=== PATIENT | male | born 1980 | race African-American/Black ===

== ENCOUNTER 2018-01-30 16:08 | Inpatient (IN) ==
[2018-01-30 17:13] LABS: Basophils % 0.3 % (0.0-0.8); Eosinophils # 0.3 10*3/uL (0.0-0.87); Eosinophils % 3.3 % (0.00-10.9); Hematocrit 21.7 VOL% (42.0-52.0); Immature Granulocytes % 0.4 %; Immature Granulocytes Absolute 0.04 #; Lymphocytes # 1.1 10*3/uL (1.4-4.0); Lymphocytes % 11.9 % (21.2-54.2); Mean Corpuscular HGB Conc 36.9 GM/DL (32-36); Mean Corpuscular Hemoglobin 29 PG (27-34); Mean Corpuscular Volume 78.6 FL (87-102); Mean Platelet Volume 11.4 FL (9.6-12.0); Monocytes # 0.4 10*3/uL (0.11-0.8); Monocytes % 3.8 % (1.7-12.7); Neutrophils # 7.4 10*3/uL (1.4-7.4); Neutrophils % 80.3 % (38.7-73.9); Platelet Count 316 T/CUMM (130-400); Red Blood Count 2.76 MC/CUMM (3.8-5.5); Red Cell Distribution Width 15.2 % (9.3-17.3); White Blood Count 9.3 T/CUMM (4-12)
[2018-01-30 17:48] LABS: Alanine Aminotransferase 29 U/L (16-61); Albumin 2.2 G/DL (3.4-5.0); Alkaline Phosphatase 73 U/L (45-117); Aspartate Amino Transferase 45 U/L (0-37); Bilirubin,Total < 0.39 MG/DL (0.2-1.0); Blood Urea Nitrogen 46 MG/DL (7-18); Calcium 7.8 MG/DL (8.5-10.1); Glucose 58 MG/DL (74-106); Osmolality,Calculated 292.1 MOS/KG (273-304); Potassium 3.5 MMOL/L (3.5-5.1); Sodium 142 MMOL/L (136-145); Total Protein 5.6 G/DL (6.4-8.3)
[2018-01-30] MEDS ORDERED: DOCUSATE SODIUM 100 MG CAPSULE PO PRN (17:59)
[2018-01-30] MEDS ORDERED: ONDANSETRON 4 MG/2 ML VIAL IV PRN (17:59)
[2018-01-30] MEDS ORDERED: GLUCAGON 1 MG VIAL IM PRN (17:59)
[2018-01-30] MEDS ORDERED: ACETAMINOPHEN 325 MG TABLET PO PRN (17:59)
[2018-01-30] MEDS ORDERED: ZALEPLON 5 MG CAPSULE PO PRN (17:59)
[2018-01-30] MEDS ORDERED: DEXTROSE 50% 25 GM/50 ML VIAL IV PRN (17:59)
[2018-01-30] MEDS ORDERED: hydrALAZINE 20 MG/1 ML VIAL IV STA ×2 (18:04→19:29)
[2018-01-30] MEDS ORDERED: FUROSEMIDE 40 MG/4 ML VIAL IV STA (18:05)
[2018-01-30] MEDS ORDERED: hydrALAZINE 20 MG/1 ML VIAL IV PRN (18:07)
[2018-01-30] MEDS ORDERED: DEXTROSE 50% 25 GM/50 ML SYRINGE IV ONE (18:23)
[2018-01-30 18:29] LABS: Thyroid Stimulating Hormone 3.35 uIU/ml (0.358-3.74)
[2018-01-30] MEDS ORDERED: cloNIDine 0.1 MG TABLET PO STA (18:41)
[2018-01-30] MEDS ORDERED: LABETALOL 20 MG/4 ML SYRINGE IV STA (18:42)
[2018-01-30] MEDS ORDERED: LABETALOL 100 MG/20 ML VIAL IV STA (18:49)
[2018-01-30 18:53] LABS: Amorphous Crystals,Urine Few /HPF (Few); Apearance,Urine CLOUDY (Clear); Bacteria,Urine Occasional /HPF (Few); Bilirubin,Urine Negative (Negative); Blood, Urine Moderate mg/dL (Negative); Glucose,Urine (UA) 50 mg/dL (Negative); Ketones,Urine Negative (Negative); Nitrite,Urine Negative (Negative); Protein,Urine >=500 MG/DL; RBC,Urine 2 /HPF (0-4); Squamous Epithelial Cell,Urine Occasional /HPF (0-10); Urine Color Yellow (Yellow); Urine Specific Gravity 1.016 (1.001-1.035); Urine Urobilinogen < 2.0 EU/DL (0.2-1.0); WBC,Urine 25 /HPF (0-6)
[2018-01-30 18:57] LABS: Ferritin 1143.1 ng/ml (26-388)
[2018-01-30] MEDS: PRAVASTATIN 40 MG TABLET PO SCH (20:29)
[2018-01-30] MEDS: CARVEDILOL 25 MG TABLET PO SCH (20:29)
[2018-01-30] MEDS ORDERED: CARVEDILOL 25 MG TABLET PO SCH (21:00)
[2018-01-30] MEDS: INSULIN LISPRO 100 UNIT/ML SUBCUT SCH ×2 (21:23→22:19)
[2018-01-30] MEDS: FUROSEMIDE 40 MG/4 ML VIAL IV SCH (22:11)
[2018-01-31] MEDS: INSULIN LISPRO 100 UNIT/ML SUBCUT SCH ×6 (01:55→20:51)
[2018-01-31 06:42] LABS: Albumin 1.8 G/DL (3.4-5.0); Bilirubin,Total 0.6 MG/DL (0.2-1.0); Calcium 7.6 MG/DL (8.5-10.1); Potassium 3.4 MMOL/L (3.5-5.1); Total Protein 5.2 G/DL (6.4-8.3)
[2018-01-31 07:13] LABS: Basophils % 0.4 % (0.0-0.8); Eosinophils # 0.4 10*3/uL (0.0-0.87); Eosinophils % 4.7 % (0.00-10.9); Hematocrit 18.3 VOL% (42.0-52.0); Hemoglobin 6.7 GM/DL (14.0-18.0); Immature Granulocytes % 0.4 %; Immature Granulocytes Absolute 0.03 #; Lymphocytes # 1.2 10*3/uL (1.4-4.0); Lymphocytes % 14.8 % (21.2-54.2); Mean Corpuscular HGB Conc 36.6 GM/DL (32-36); Mean Corpuscular Hemoglobin 29 PG (27-34); Mean Corpuscular Volume 79.6 FL (87-102); Mean Platelet Volume 10.9 FL (9.6-12.0); Monocytes # 0.3 10*3/uL (0.11-0.8); Monocytes % 4.2 % (1.7-12.7); Neutrophils # 6.1 10*3/uL (1.4-7.4); Neutrophils % 75.5 % (38.7-73.9); Platelet Count 274 T/CUMM (130-400); Red Cell Distribution Width 15.7 % (9.3-17.3); White Blood Count 8.1 T/CUMM (4-12)
[2018-01-31] MEDS ORDERED: POTASSIUM CHLORIDE 20 MEQ TABLET PO PRN (08:19)
[2018-01-31] MEDS: MULTIVITAMIN (CENTRUM) TABLET PO SCH (09:32)
[2018-01-31] MEDS: CYANOCOBALAMIN 500 MCG TABLET PO SCH (09:32)
[2018-01-31] MEDS: PANTOPRAZOLE 40 MG TABLET PO SCH (09:32)
[2018-01-31] MEDS: MINOXIDIL 2.5 MG TABLET PO SCH (09:33)
[2018-01-31] MEDS: FUROSEMIDE 40 MG/4 ML VIAL IV SCH ×2 (09:36→20:48)
[2018-01-31] MEDS: CARVEDILOL 25 MG TABLET PO SCH ×2 (09:37→18:06)
[2018-01-31 10:06] LABS: Basophils % 0.4 % (0.0-0.8); Eosinophils # 0.4 10*3/uL (0.0-0.87); Eosinophils % 4.2 % (0.00-10.9); Hematocrit 19.7 VOL% (42.0-52.0); Hemoglobin 7.2 GM/DL (14.0-18.0); Immature Granulocytes % 0.4 %; Immature Granulocytes Absolute 0.04 #; Lymphocytes # 1.4 10*3/uL (1.4-4.0); Lymphocytes % 15.7 % (21.2-54.2); Mean Corpuscular HGB Conc 36.5 GM/DL (32-36); Mean Corpuscular Hemoglobin 29 PG (27-34); Mean Corpuscular Volume 80.1 FL (87-102); Mean Platelet Volume 11.3 FL (9.6-12.0); Monocytes # 0.5 10*3/uL (0.11-0.8); Monocytes % 5.4 % (1.7-12.7); Neutrophils # 6.7 10*3/uL (1.4-7.4); Neutrophils % 73.9 % (38.7-73.9); Platelet Count 301 T/CUMM (130-400); Red Blood Count 2.46 MC/CUMM (3.8-5.5); Red Cell Distribution Width 15.3 % (9.3-17.3); White Blood Count 9.1 T/CUMM (4-12)
[2018-01-31] MEDS: cefTRIAXone 1,000 MG in SYRINGE 1 EACH IV SCH (12:49)
[2018-01-31] MEDS ORDERED: SODIUM CHLORIDE 0.9% 1,000 ML IV PRN (13:26)
[2018-01-31] MEDS: PRAVASTATIN 40 MG TABLET PO SCH (18:06)
[2018-01-31 18:49] LABS: % Iron Saturation 31.4 % (18-50); Ferritin 990.8 ng/ml (26-388)
[2018-02-01] MEDS: INSULIN LISPRO 100 UNIT/ML SUBCUT SCH ×6 (00:01→21:50)
[2018-02-01 01:05] LABS: Hemoglobin 8.5 GM/DL (14.0-18.0)
[2018-02-01 06:34] LABS: Basophils # 0.1 10*3/uL (0.0-0.2); Basophils % 0.5 % (0.0-0.8); Eosinophils # 0.5 10*3/uL (0.0-0.87); Eosinophils % 4.9 % (0.00-10.9); Hematocrit 25.6 VOL% (42.0-52.0); Hemoglobin 8.9 GM/DL (14.0-18.0); Immature Granulocytes % 0.4 %; Immature Granulocytes Absolute 0.04 #; Lymphocytes # 1.6 10*3/uL (1.4-4.0); Mean Corpuscular HGB Conc 34.8 GM/DL (32-36); Mean Corpuscular Hemoglobin 29 PG (27-34); Mean Corpuscular Volume 82.3 FL (87-102); Mean Platelet Volume 10.9 FL (9.6-12.0); Monocytes # 0.5 10*3/uL (0.11-0.8); Monocytes % 5.7 % (1.7-12.7); Neutrophils # 6.6 10*3/uL (1.4-7.4); Neutrophils % 71.5 % (38.7-73.9); Platelet Count 284 T/CUMM (130-400); Red Blood Count 3.11 MC/CUMM (3.8-5.5); Red Cell Distribution Width 14.9 % (9.3-17.3); White Blood Count 9.2 T/CUMM (4-12)
[2018-02-01 06:53] LABS: Calcium 7.5 MG/DL (8.5-10.1); Osmolality,Calculated 299.4 MOS/KG (273-304); Potassium 3.8 MMOL/L (3.5-5.1)
[2018-02-01] MEDS: PANTOPRAZOLE 40 MG TABLET PO SCH (10:58)
[2018-02-01] MEDS: CYANOCOBALAMIN 500 MCG TABLET PO SCH (10:58)
[2018-02-01] MEDS: CARVEDILOL 25 MG TABLET PO SCH ×2 (11:00→19:31)
[2018-02-01] MEDS: MULTIVITAMIN (CENTRUM) TABLET PO SCH (11:00)
[2018-02-01] MEDS: FUROSEMIDE 40 MG/4 ML VIAL IV SCH (11:03)
[2018-02-01] MEDS: cefTRIAXone 1,000 MG in SYRINGE 1 EACH IV SCH (15:35)
[2018-02-01] MEDS: PRAVASTATIN 40 MG TABLET PO SCH (19:31)
[2018-02-01] MEDS: MINOXIDIL 2.5 MG TABLET PO SCH (21:49)
[2018-02-02] MEDS: INSULIN LISPRO 100 UNIT/ML SUBCUT SCH ×4 (05:24→12:45)
[2018-02-02 07:10] LABS: Basophils % 0.4 % (0.0-0.8); Eosinophils # 0.4 10*3/uL (0.0-0.87); Eosinophils % 5.4 % (0.00-10.9); Hematocrit 24.9 VOL% (42.0-52.0); Hemoglobin 8.7 GM/DL (14.0-18.0); Immature Granulocytes % 0.2 %; Immature Granulocytes Absolute 0.02 #; Lymphocytes # 1.3 10*3/uL (1.4-4.0); Lymphocytes % 16.7 % (21.2-54.2); Mean Corpuscular HGB Conc 34.9 GM/DL (32-36); Mean Corpuscular Hemoglobin 29 PG (27-34); Mean Corpuscular Volume 81.9 FL (87-102); Mean Platelet Volume 10.5 FL (9.6-12.0); Monocytes # 0.4 10*3/uL (0.11-0.8); Neutrophils # 5.8 10*3/uL (1.4-7.4); Neutrophils % 72.3 % (38.7-73.9); Platelet Count 271 T/CUMM (130-400); Red Blood Count 3.04 MC/CUMM (3.8-5.5); Red Cell Distribution Width 14.7 % (9.3-17.3)
[2018-02-02 07:40] LABS: Calcium 7.8 MG/DL (8.5-10.1); Osmolality,Calculated 292.3 MOS/KG (273-304); Potassium 3.6 MMOL/L (3.5-5.1)
[2018-02-02] MEDS ORDERED: LEVOFLOXACIN 500 MG TABLET PO SCH (09:00)
[2018-02-02] MEDS: MINOXIDIL 2.5 MG TABLET PO SCH ×2 (09:10→09:33)
[2018-02-02] MEDS: MULTIVITAMIN (CENTRUM) TABLET PO SCH (09:10)
[2018-02-02] MEDS: CYANOCOBALAMIN 500 MCG TABLET PO SCH (09:10)
[2018-02-02] MEDS: CARVEDILOL 25 MG TABLET PO SCH (09:11)
[2018-02-02] MEDS: PANTOPRAZOLE 40 MG TABLET PO SCH (09:11)
[2018-02-02] MEDS ORDERED: DARBEPOETIN ALFA 100 MCG/ML VIAL SUBCUT ONE (11:13)
[2018-02-02 12:36] VITALS: BP 140/82
[2018-02-03] MEDS ORDERED: LEVOFLOXACIN 250 MG TABLET PO SCH (09:00)
== END 2018-02-02 13:42 | disposition home health service (06) | DRG 699 ==
LOC: N.ED 16:08 → N.EDINP 17:59 → N.5E 20:05
PROVIDERS: ADMIT Internal Medicine; ATTEND Internal Medicine

== ENCOUNTER 2018-05-08 12:12 | Inpatient (IN) ==
[2018-05-08] MEDS ORDERED: ONDANSETRON 4 MG/2 ML VIAL IV STA (13:39)
[2018-05-08] MEDS ORDERED: ASPIRIN 325 MG TABLET PO STA (13:39)
[2018-05-08] MEDS ORDERED: MORPHINE 4 MG/1 ML VIAL IV STA (13:39)
[2018-05-08] MEDS ORDERED: NITROGLYCERIN 2% OINT 1 INCH/GM PACK TOP STA (13:39)
[2018-05-08 13:53] LABS: Basophils % 0.4 % (0.0-0.8); Eosinophils # 0.9 10*3/uL (0.0-0.87); Eosinophils % 10.1 % (0.00-10.9); Hemoglobin 9.7 GM/DL (14.0-18.0); Immature Granulocytes % 0.3 %; Immature Granulocytes Absolute 0.03 #; Lymphocytes # 1.3 10*3/uL (1.4-4.0); Lymphocytes % 14.6 % (21.2-54.2); Mean Corpuscular HGB Conc 34.6 GM/DL (32-36); Mean Corpuscular Hemoglobin 28 PG (27-34); Mean Platelet Volume 10.9 FL (9.6-12.0); Monocytes # 0.5 10*3/uL (0.11-0.8); Monocytes % 4.9 % (1.7-12.7); Neutrophils # 6.4 10*3/uL (1.4-7.4); Neutrophils % 69.7 % (38.7-73.9); Platelet Count 323 T/CUMM (130-400); Red Cell Distribution Width 13.9 % (9.3-17.3); White Blood Count 9.2 T/CUMM (4-12)
[2018-05-08 13:56] LABS: INR 0.9; PT Patient Result 9.7 SECS
[2018-05-08 14:17] LABS: Alanine Aminotransferase 37 U/L (16-61); Albumin 2.1 G/DL (3.4-5.0); Alkaline Phosphatase 85 U/L (45-117); Aspartate Amino Transferase 72 U/L (0-37); Bilirubin,Total < 0.39 MG/DL (0.2-1.0); Blood Urea Nitrogen 56 MG/DL (7-18); Calcium 7.9 MG/DL (8.5-10.1); Glucose 102 MG/DL (74-106); Osmolality,Calculated 292.5 MOS/KG (273-304); Potassium 3.6 MMOL/L (3.5-5.1); Sodium 139 MMOL/L (136-145); Total Protein 6.9 G/DL (6.4-8.3)
[2018-05-08] MEDS ORDERED: DEXTROSE 50% 25 GM/50 ML VIAL IV PRN (15:42)
[2018-05-08] MEDS ORDERED: GLUCAGON 1 MG VIAL IM PRN (15:42)
[2018-05-08] MEDS ORDERED: LACTULOSE 20 GM/30 ML UDCUP PO PRN (15:42)
[2018-05-08] MEDS ORDERED: ACETAMINOPHEN 325 MG TABLET PO PRN (15:42)
[2018-05-08] MEDS ORDERED: ONDANSETRON 4 MG/2 ML VIAL IV PRN (15:42)
[2018-05-08] MEDS: INSULIN REGULAR 100 UNIT/ML SUBCUT SCH ×2 (18:16→21:09)
[2018-05-08] MEDS: ENOXAPARIN 30 MG/0.3 ML SYRINGE SUBCUT SCH (18:16)
[2018-05-08] MEDS: CARVEDILOL 25 MG TABLET PO SCH (21:11)
[2018-05-08] MEDS: BUMETANIDE 1 MG/4 ML VIAL IV SCH (21:14)
[2018-05-09 06:00] LABS: Basophils # 0.1 10*3/uL (0.0-0.2); Basophils % 0.8 % (0.0-0.8); Eosinophils # 0.9 10*3/uL (0.0-0.87); Eosinophils % 12.5 % (0.00-10.9); Hematocrit 25.7 VOL% (42.0-52.0); Hemoglobin 9.1 GM/DL (14.0-18.0); Immature Granulocytes % 0.3 %; Immature Granulocytes Absolute 0.02 #; Lymphocytes # 1.7 10*3/uL (1.4-4.0); Lymphocytes % 22.2 % (21.2-54.2); Mean Corpuscular HGB Conc 35.4 GM/DL (32-36); Mean Corpuscular Hemoglobin 28 PG (27-34); Mean Corpuscular Volume 79.6 FL (87-102); Mean Platelet Volume 11.3 FL (9.6-12.0); Monocytes # 0.4 10*3/uL (0.11-0.8); Monocytes % 5.3 % (1.7-12.7); Neutrophils # 4.4 10*3/uL (1.4-7.4); Neutrophils % 58.9 % (38.7-73.9); Platelet Count 287 T/CUMM (130-400); Red Blood Count 3.23 MC/CUMM (3.8-5.5); Red Cell Distribution Width 13.9 % (9.3-17.3); White Blood Count 7.5 T/CUMM (4-12)
[2018-05-09 06:28] LABS: Calcium 7.7 MG/DL (8.5-10.1); Osmolality,Calculated 296.3 MOS/KG (273-304)
[2018-05-09 06:36] LABS: Eosinophils 15 % (0-10); Hypochromasia 1+; Lymphocytes 26 % (20-55); Microcytosis Slight; Platelet Estimate Adequate; Segmented Neutrophils 57 % (50-85); Total Cells Counted 100
[2018-05-09] MEDS: INSULIN REGULAR 100 UNIT/ML SUBCUT SCH ×4 (07:27→21:59)
[2018-05-09] MEDS ORDERED: NON-FORMULARY MEDICATION (Cyanocobalamin (Vitamin B-12) [Vitamin B-12] 5,000 MCG) SL SCH (09:00)
[2018-05-09] MEDS: ASPIRIN EC 81 MG TABLET PO SCH (10:20)
[2018-05-09] MEDS: CARVEDILOL 25 MG TABLET PO SCH ×2 (10:21→22:01)
[2018-05-09] MEDS: metOLazone 5 MG TABLET PO SCH (10:21)
[2018-05-09] MEDS: PANTOPRAZOLE 40 MG TABLET PO SCH (10:21)
[2018-05-09] MEDS: BUMETANIDE 1 MG/4 ML VIAL IV SCH ×2 (10:36→21:58)
[2018-05-09] MEDS: ENOXAPARIN 30 MG/0.3 ML SYRINGE SUBCUT SCH (22:00)
[2018-05-10 06:30] LABS: Basophils % 0.5 % (0.0-0.8); Eosinophils # 0.7 10*3/uL (0.0-0.87); Eosinophils % 8.8 % (0.00-10.9); Hematocrit 24.2 VOL% (42.0-52.0); Hemoglobin 8.3 GM/DL (14.0-18.0); Immature Granulocytes % 0.2 %; Immature Granulocytes Absolute 0.02 #; Lymphocytes # 1.7 10*3/uL (1.4-4.0); Lymphocytes % 21.1 % (21.2-54.2); Mean Corpuscular HGB Conc 34.3 GM/DL (32-36); Mean Corpuscular Hemoglobin 28 PG (27-34); Mean Corpuscular Volume 80.7 FL (87-102); Mean Platelet Volume 10.3 FL (9.6-12.0); Monocytes # 0.4 10*3/uL (0.11-0.8); Monocytes % 4.9 % (1.7-12.7); Neutrophils # 5.2 10*3/uL (1.4-7.4); Neutrophils % 64.5 % (38.7-73.9); Platelet Count 249 T/CUMM (130-400); Red Cell Distribution Width 13.7 % (9.3-17.3); White Blood Count 8.1 T/CUMM (4-12)
[2018-05-10 06:51] LABS: Calcium 7.4 MG/DL (8.5-10.1); Osmolality,Calculated 297.5 MOS/KG (273-304)
[2018-05-10] MEDS: INSULIN REGULAR 100 UNIT/ML SUBCUT SCH ×4 (09:08→21:28)
[2018-05-10] MEDS: PANTOPRAZOLE 40 MG TABLET PO SCH (09:08)
[2018-05-10] MEDS: ASPIRIN EC 81 MG TABLET PO SCH (09:09)
[2018-05-10] MEDS: SKIN HEALING OINT (AQUAPHOR) 50 GM TUBE TOP SCH (09:09)
[2018-05-10] MEDS: CARVEDILOL 25 MG TABLET PO SCH ×2 (09:09→21:28)
[2018-05-10] MEDS: metOLazone 5 MG TABLET PO SCH (09:09)
[2018-05-10] MEDS: BUMETANIDE 1 MG/4 ML VIAL IV SCH ×2 (12:06→21:28)
[2018-05-10] MEDS: ENOXAPARIN 30 MG/0.3 ML SYRINGE SUBCUT SCH (21:28)
[2018-05-11 05:31] LABS: Basophils % 0.2 % (0.0-0.8); Eosinophils % 12.5 % (0.00-10.9); Hematocrit 24.4 VOL% (42.0-52.0); Hemoglobin 8.7 GM/DL (14.0-18.0); Immature Granulocytes % 0.4 %; Immature Granulocytes Absolute 0.03 #; Lymphocytes # 1.7 10*3/uL (1.4-4.0); Lymphocytes % 20.6 % (21.2-54.2); Mean Corpuscular HGB Conc 35.7 GM/DL (32-36); Mean Corpuscular Hemoglobin 28 PG (27-34); Mean Corpuscular Volume 78.2 FL (87-102); Mean Platelet Volume 10.8 FL (9.6-12.0); Monocytes # 0.5 10*3/uL (0.11-0.8); Monocytes % 5.5 % (1.7-12.7); Neutrophils # 5.1 10*3/uL (1.4-7.4); Neutrophils % 60.8 % (38.7-73.9); Platelet Count 271 T/CUMM (130-400); Red Blood Count 3.12 MC/CUMM (3.8-5.5); Red Cell Distribution Width 13.4 % (9.3-17.3); White Blood Count 8.3 T/CUMM (4-12)
[2018-05-11 05:46] LABS: Calcium 7.8 MG/DL (8.5-10.1); Osmolality,Calculated 289.7 MOS/KG (273-304); Potassium 3.5 MMOL/L (3.5-5.1)
[2018-05-11 05:54] LABS: Eosinophils 8 % (0-10); Hypochromasia 1+; Lymphocytes 13 % (20-55); Microcytosis Slight; Ovalocytes Slight; Platelet Estimate Adequate; Segmented Neutrophils 76 % (50-85); Total Cells Counted 100
[2018-05-11] MEDS: INSULIN REGULAR 100 UNIT/ML SUBCUT SCH ×2 (07:33→12:40)
[2018-05-11] MEDS: CARVEDILOL 25 MG TABLET PO SCH (09:24)
[2018-05-11] MEDS: ASPIRIN EC 81 MG TABLET PO SCH (09:24)
[2018-05-11] MEDS: metOLazone 5 MG TABLET PO SCH (09:24)
[2018-05-11] MEDS: SKIN HEALING OINT (AQUAPHOR) 50 GM TUBE TOP SCH (09:25)
[2018-05-11] MEDS: PANTOPRAZOLE 40 MG TABLET PO SCH (09:25)
[2018-05-11] MEDS: BUMETANIDE 1 MG/4 ML VIAL IV SCH (09:34)
[2018-05-11 13:13] VITALS: BP 133/81
== END 2018-05-11 13:13 | disposition home or self-care (01) | DRG 684 ==
LOC: N.ED 12:12 → N.EDINP 15:42 → N.2E 16:59
PROVIDERS: ADMIT Internal Medicine; ATTEND Internal Medicine

== ENCOUNTER 2018-06-07 20:00 | Inpatient (IN) ==
[2018-06-07] MEDS ORDERED: ONDANSETRON 4 MG/2 ML VIAL IV STA (22:03)
[2018-06-07] MEDS ORDERED: SODIUM CHLORIDE 0.9% 500 ML IV STA (22:03)
[2018-06-07 23:06] LABS: Basophils # 0.1 10*3/uL (0.0-0.2); Basophils % 0.4 % (0.0-0.8); Eosinophils # 0.1 10*3/uL (0.0-0.87); Eosinophils % 0.7 % (0.00-10.9); Hematocrit 20.7 VOL% (42.0-52.0); Hemoglobin 7.5 GM/DL (14.0-18.0); Immature Granulocytes % 0.5 %; Immature Granulocytes Absolute 0.07 #; Lymphocytes # 0.8 10*3/uL (1.4-4.0); Mean Corpuscular HGB Conc 36.2 GM/DL (32-36); Mean Corpuscular Hemoglobin 28 PG (27-34); Mean Platelet Volume 11.2 FL (9.6-12.0); Monocytes # 0.3 10*3/uL (0.11-0.8); Neutrophils # 12.4 10*3/uL (1.4-7.4); Neutrophils % 90.4 % (38.7-73.9); Platelet Count 210 T/CUMM (130-400); Red Blood Count 2.69 MC/CUMM (3.8-5.5); Red Cell Distribution Width 13.4 % (9.3-17.3); White Blood Count 13.7 T/CUMM (4-12)
[2018-06-07 23:32] LABS: Alanine Aminotransferase 34 U/L (16-61); Albumin 2.4 G/DL (3.4-5.0); Alkaline Phosphatase 105 U/L (45-117); Amylase 23 U/L (25-115); Aspartate Amino Transferase 31 U/L (0-37); Blood Urea Nitrogen 71 MG/DL (7-18); Calcium 7.9 MG/DL (8.5-10.1); Osmolality,Calculated 320.4 MOS/KG (273-304); Potassium 4.3 MMOL/L (3.5-5.1); Sodium 126 MMOL/L (136-145); Total Protein 7.2 G/DL (6.4-8.3)
[2018-06-07 23:34] LABS: Glucose 944 MG/DL (74-106)
[2018-06-07 23:35] LABS: Lactic Acid 2.1 MMOL/L (0.4-2.0)
[2018-06-07] MEDS ORDERED: SODIUM CHLORIDE 0.9% 1,000 ML IV STA (23:40)
[2018-06-07] MEDS ORDERED: INSULIN REGULAR 100 UNIT/ML IV STA (23:40)
[2018-06-07] MEDS ORDERED: cefTRIAXone 1,000 MG in SODIUM CHLORIDE 0.9% 100 ML IV STA (23:44)
[2018-06-07 23:57] LABS: ABG Base Excess -12.1 MMOL/L (-2.5-2.5); ABG HCO3 14.8 MMOL/L (20-26); ABG Oxygen Saturation 98.1 % (95-100); ABG PCO2 21.2 MM HG (35-48); ABG PH 7.366 (7.35-7.45); ABG TCO2 11.5 MMOL/L (23-27)
[2018-06-08 01:27] LABS: Apearance,Urine Slightly Hazy (Clear); Bacteria,Urine Occasional /HPF (Few); Bilirubin,Urine Negative (Negative); Blood, Urine Moderate mg/dL (Negative); Glucose,Urine (UA) >=500 mg/dL (Negative); Granular Casts,Urine 5 /LPF (0-1); Ketones,Urine 5 mg/dL (Negative); Mucus,Urine Occasional /LPF (Occasional); Nitrite,Urine Negative (Negative); Protein,Urine >=500 MG/DL; RBC,Urine 1 /HPF (0-4); Squamous Epithelial Cell,Urine Occasional /HPF (0-10); Urine Color Yellow (Yellow); Urine Specific Gravity 1.014 (1.001-1.035); Urine Urobilinogen < 2.0 EU/DL (0.2-1.0); WBC,Urine 2 /HPF (0-6)
[2018-06-08] MEDS: SODIUM CHLORIDE 0.9% 1,000 ML IV SCH ×4 (02:24→08:16)
[2018-06-08] MEDS: INSULIN REGULAR DRIP 100 ML IV PRN ×2 (02:35→16:21)
[2018-06-08] MEDS ORDERED: SODIUM PHOSPHATE INJ 26.5 MMOL in SODIUM CHLORIDE 0.9% 250 ML IV PRN (02:47)
[2018-06-08] MEDS ORDERED: POTASSIUM CHLORIDE RIDER 10 MEQ in PREMIX 1 EACH IV PRN (02:47)
[2018-06-08] MEDS ORDERED: SODIUM CHLORIDE 0.9% 1,000 ML IV ONE (02:47)
[2018-06-08] MEDS ORDERED: MAGNESIUM SULF RIDER 4 GM in PREMIX 1 EACH IV PRN (02:47)
[2018-06-08] MEDS ORDERED: DEXTROSE 50% 25 GM/50 ML VIAL IV PRN (02:47)
[2018-06-08] MEDS ORDERED: SODIUM BICARB INJ 100 MEQ in STERILE WATER INJ 400 ML IV PRN (02:47)
[2018-06-08] MEDS ORDERED: ALBUTEROL 2.5 MG/3 ML NEB RESP TX PRN (02:54)
[2018-06-08] MEDS ORDERED: PROMETHAZINE 25 MG/1 ML VIAL IM PRN (02:54)
[2018-06-08 03:34] LABS: Calcium 7.2 MG/DL (8.5-10.1); Osmolality,Calculated 315.2 MOS/KG (273-304); Potassium 4.1 MMOL/L (3.5-5.1)
[2018-06-08 03:55] LABS: Basophils % 0.3 % (0.0-0.8); Eosinophils % 0.2 % (0.00-10.9); Hematocrit 18.9 VOL% (42.0-52.0); Hemoglobin 6.8 GM/DL (14.0-18.0); Immature Granulocytes % 0.7 %; Immature Granulocytes Absolute 0.07 #; Lymphocytes # 0.7 10*3/uL (1.4-4.0); Lymphocytes % 6.9 % (21.2-54.2); Mean Corpuscular Hemoglobin 28 PG (27-34); Mean Corpuscular Volume 76.8 FL (87-102); Mean Platelet Volume 11.3 FL (9.6-12.0); Monocytes # 0.3 10*3/uL (0.11-0.8); Monocytes % 2.5 % (1.7-12.7); Neutrophils # 9.6 10*3/uL (1.4-7.4); Neutrophils % 89.4 % (38.7-73.9); Platelet Count 170 T/CUMM (130-400); Red Blood Count 2.46 MC/CUMM (3.8-5.5); Red Cell Distribution Width 13.3 % (9.3-17.3); White Blood Count 10.8 T/CUMM (4-12)
[2018-06-08] MEDS: MAGNESIUM SULF RIDER 2 GM in PREMIX 1 EACH IV PRN (04:21)
[2018-06-08] MEDS ORDERED: INSULIN REGULAR 100 UNIT/ML IV ONE (05:00)
[2018-06-08] MEDS: ACETAMINOPHEN 325 MG TABLET PO PRN ×2 (05:10→11:23)
[2018-06-08] MEDS ORDERED: SODIUM CHLORIDE 0.9% 1,000 ML IV PRN (06:24)
[2018-06-08 07:28] LABS: Calcium 7.3 MG/DL (8.5-10.1); Osmolality,Calculated 312.5 MOS/KG (273-304); Potassium 3.8 MMOL/L (3.5-5.1)
[2018-06-08 11:21] LABS: Calcium 7.4 MG/DL (8.5-10.1); Osmolality,Calculated 301.5 MOS/KG (273-304); Potassium 3.8 MMOL/L (3.5-5.1)
[2018-06-08] MEDS: SODIUM CHLOR 0.9% KCL 20 MEQ 20 MEQ/1,000 ML BAG IV SCH ×2 (12:50→18:29)
[2018-06-08] MEDS ORDERED: GLUCAGON 1 MG VIAL IM PRN (12:52)
[2018-06-08] MEDS: ONDANSETRON 4 MG/2 ML VIAL IV PRN (14:15)
[2018-06-08] MEDS: CARVEDILOL 25 MG TABLET PO SCH ×2 (14:19→20:21)
[2018-06-08] MEDS: DEXT 5% NACL 0.45% KCL 20 MEQ 20 MEQ/1,000 ML BAG IV SCH (16:25)
[2018-06-08 17:02] LABS: Hematocrit 24.4 VOL% (42.0-52.0); Hemoglobin 8.5 GM/DL (14.0-18.0)
[2018-06-08 17:22] LABS: Calcium 7.7 MG/DL (8.5-10.1); Potassium 3.5 MMOL/L (3.5-5.1)
[2018-06-08] MEDS: DEXTROSE 50% 25 GM/50 ML VIAL IV PRN (17:26)
[2018-06-08] MEDS ORDERED: SODIUM CHLORIDE 0.45% 1,000 ML IV SCH (19:47)
[2018-06-08 20:15] LABS: Calcium 7.8 MG/DL (8.5-10.1); Osmolality,Calculated 283.4 MOS/KG (273-304); Potassium 3.8 MMOL/L (3.5-5.1)
[2018-06-08] MEDS: INSULIN REGULAR 100 UNIT/ML SUBCUT SCH ×3 (20:23→22:21)
[2018-06-08] MEDS: cefTRIAXone 1,000 MG in SYRINGE 1 EACH IV SCH (20:26)
[2018-06-08] MEDS ORDERED: CARVEDILOL 25 MG TABLET PO SCH (21:00)
[2018-06-08] MEDS ORDERED: DEXT 5% NACL 0.9% KCL 20 MEQ 20 MEQ/1,000 ML BAG IV SCH (21:00)
[2018-06-08] MEDS: hydrALAZINE 25 MG TABLET PO PRN (21:15)
[2018-06-08] MEDS ORDERED: hydrALAZINE 20 MG/1 ML VIAL IV ONE (22:30)
[2018-06-08 23:50] LABS: Calcium 7.9 MG/DL (8.5-10.1); Osmolality,Calculated 288.1 MOS/KG (273-304); Potassium 3.8 MMOL/L (3.5-5.1)
[2018-06-09] MEDS: INSULIN REGULAR 100 UNIT/ML SUBCUT SCH ×3 (00:13→21:01)
[2018-06-09] MEDS ORDERED: ASPIRIN 325 MG TABLET ONE (00:36)
[2018-06-09] MEDS ORDERED: MORPHINE 4 MG/1 ML VIAL ONE (00:37)
[2018-06-09] MEDS ORDERED: NITROGLYCERIN SL 0.4 MG TABLET SL ONE (00:37)
[2018-06-09] MEDS ORDERED: NITROGLYCERIN SL 0.4 MG TABLET SL PRN (00:38)
[2018-06-09] MEDS ORDERED: MORPHINE 4 MG/1 ML VIAL IV PRN (00:38)
[2018-06-09] MEDS ORDERED: niCARdipine 25 MG/10 ML VIAL IV ONE (00:43)
[2018-06-09] MEDS: niCARdipine INJ 25 MG in SODIUM CHLORIDE 0.9% 240 ML IV PRN ×4 (00:48→21:00)
[2018-06-09] MEDS ORDERED: ASPIRIN CHEW 81 MG TABLET PO ONE (01:00)
[2018-06-09 01:11] LABS: Albumin 1.9 G/DL (3.4-5.0); Bilirubin,Total 0.4 MG/DL (0.2-1.0); Calcium 7.9 MG/DL (8.5-10.1); Potassium 3.9 MMOL/L (3.5-5.1); Total Protein 6.1 G/DL (6.4-8.3)
[2018-06-09 01:30] LABS: Basophils # 0.1 10*3/uL (0.0-0.2); Basophils % 0.5 % (0.0-0.8); Eosinophils # 0.6 10*3/uL (0.0-0.87); Eosinophils % 4.7 % (0.00-10.9); Hemoglobin 9.8 GM/DL (14.0-18.0); Immature Granulocytes % 2.6 %; Immature Granulocytes Absolute 0.33 #; Lymphocytes # 1.7 10*3/uL (1.4-4.0); Lymphocytes % 13.4 % (21.2-54.2); Mean Corpuscular HGB Conc 36.3 GM/DL (32-36); Mean Corpuscular Hemoglobin 28 PG (27-34); Mean Platelet Volume 10.9 FL (9.6-12.0); Monocytes # 0.7 10*3/uL (0.11-0.8); Monocytes % 5.4 % (1.7-12.7); Neutrophils # 9.3 10*3/uL (1.4-7.4); Neutrophils % 73.4 % (38.7-73.9); Platelet Count 181 T/CUMM (130-400); Red Blood Count 3.46 MC/CUMM (3.8-5.5); Red Cell Distribution Width 13.9 % (9.3-17.3); White Blood Count 12.7 T/CUMM (4-12)
[2018-06-09] MEDS ORDERED: DEXT 5% NACL 0.9% KCL 20 MEQ 20 MEQ/1,000 ML BAG IV SCH (01:30)
[2018-06-09] MEDS: MAGNESIUM SULF RIDER 2 GM in PREMIX 1 EACH IV PRN (01:39)
[2018-06-09] MEDS: DEXT 5% NACL 0.45% KCL 20 MEQ 20 MEQ/1,000 ML BAG IV SCH ×4 (01:40→17:39)
[2018-06-09] MEDS ORDERED: INSULIN REGULAR 100 UNIT/ML SUBCUT SCH (02:00)
[2018-06-09 06:06] LABS: Calcium 7.8 MG/DL (8.5-10.1); Osmolality,Calculated 291.7 MOS/KG (273-304); Potassium 3.7 MMOL/L (3.5-5.1)
[2018-06-09] MEDS: CARVEDILOL 25 MG TABLET PO SCH ×2 (08:44→21:13)
[2018-06-09] MEDS ORDERED: INSULIN ASPART 1 UNIT SUBCUT SCH (09:45)
[2018-06-09] MEDS: DEXTROSE 50% 25 GM/50 ML VIAL IV PRN (10:56)
[2018-06-09] MEDS ORDERED: BUPIVACAINE MPF 0.25% /EPI 30 ML VIAL ONE (11:01)
[2018-06-09] MEDS ORDERED: LIDOCAINE 1%/EPI INJ 20 ML VIAL ONE (11:01)
[2018-06-09] MEDS ORDERED: HEPARIN 5,000 UNIT/1 ML VIAL ONE (11:04)
[2018-06-09 11:30] LABS: Calcium 8.1 MG/DL (8.5-10.1); Osmolality,Calculated 289.8 MOS/KG (273-304); Potassium 3.8 MMOL/L (3.5-5.1)
[2018-06-09] MEDS ORDERED: ceFAZolin 1,000 MG VIAL ONE (11:57)
[2018-06-09] MEDS ORDERED: hydrALAZINE 20 MG/1 ML VIAL ONE (12:12)
[2018-06-09] MEDS ORDERED: PROPOFOL 200 MG/20 ML VIAL IV ONE (12:12)
[2018-06-09] MEDS ORDERED: fentaNYL 100 MCG/2 ML VIAL ONE (12:12)
[2018-06-09] MEDS ORDERED: ONDANSETRON 4 MG/2 ML VIAL ONE (12:40)
[2018-06-09] MEDS: ONDANSETRON 4 MG/2 ML VIAL IV PRN (12:55)
[2018-06-09] MEDS ORDERED: INSULIN LISPRO 100 UNIT/ML ONE (14:18)
[2018-06-09] MEDS ORDERED: INSULIN LISPRO 100 UNIT/ML SUBCUT SCH (14:18)
[2018-06-09] MEDS: BUMETANIDE 1 MG TABLET PO SCH (15:41)
[2018-06-09 16:08] LABS: Hepatitis A Ab IgM Quant 0.08 Index; Hepatitis A Ab IgM Result Negative (Negative); Hepatitis B Core IgM Quant < 0.05 Index; Hepatitis B Core IgM Result Negative (Negative); Hepatitis B Surface Ag Quant < 0.10 Index; Hepatitis B Surface Ag Result Negative (Negative); Hepatitis C Virus Ab Quant 0.22 Index; Hepatitis C Virus Ab Result Negative (Negative)
[2018-06-09] MEDS: SODIUM CHLOR 0.45% KCL 20 MEQ 20 MEQ/1,000 ML BAG IV SCH (16:32)
[2018-06-09] MEDS: cefTRIAXone 1,000 MG in SYRINGE 1 EACH IV SCH (21:13)
[2018-06-10] MEDS: niCARdipine INJ 25 MG in SODIUM CHLORIDE 0.9% 240 ML IV PRN (00:50)
[2018-06-10] MEDS: INSULIN REGULAR 100 UNIT/ML SUBCUT SCH ×6 (00:54→21:20)
[2018-06-10] MEDS: DEXT 5% NACL 0.45% KCL 20 MEQ 20 MEQ/1,000 ML BAG IV SCH (04:09)
[2018-06-10] MEDS: SODIUM CHLOR 0.45% KCL 20 MEQ 20 MEQ/1,000 ML BAG IV SCH (05:30)
[2018-06-10 05:48] LABS: Basophils % 0.3 % (0.0-0.8); Eosinophils # 0.2 10*3/uL (0.0-0.87); Eosinophils % 1.9 % (0.00-10.9); Hematocrit 24.9 VOL% (42.0-52.0); Hemoglobin 8.6 GM/DL (14.0-18.0); Immature Granulocytes % 0.2 %; Immature Granulocytes Absolute 0.02 #; Lymphocytes # 1.8 10*3/uL (1.4-4.0); Lymphocytes % 20.5 % (21.2-54.2); Mean Corpuscular HGB Conc 34.5 GM/DL (32-36); Mean Corpuscular Hemoglobin 28 PG (27-34); Mean Corpuscular Volume 79.6 FL (87-102); Mean Platelet Volume 10.9 FL (9.6-12.0); Monocytes # 0.5 10*3/uL (0.11-0.8); Neutrophils # 6.3 10*3/uL (1.4-7.4); Neutrophils % 71.1 % (38.7-73.9); Platelet Count 181 T/CUMM (130-400); Red Blood Count 3.13 MC/CUMM (3.8-5.5); Red Cell Distribution Width 14.2 % (9.3-17.3); White Blood Count 8.8 T/CUMM (4-12)
[2018-06-10 06:03] LABS: Calcium 7.6 MG/DL (8.5-10.1); Osmolality,Calculated 286.8 MOS/KG (273-304); Potassium 3.6 MMOL/L (3.5-5.1)
[2018-06-10] MEDS: MAGNESIUM SULF RIDER 2 GM in PREMIX 1 EACH IV PRN (09:22)
[2018-06-10] MEDS: CARVEDILOL 25 MG TABLET PO SCH (09:49)
[2018-06-10] MEDS: BUMETANIDE 1 MG TABLET PO SCH (09:53)
[2018-06-10] MEDS: cloNIDine 0.1 MG TABLET PO SCH (21:22)
[2018-06-10] MEDS: cefTRIAXone 1,000 MG in SYRINGE 1 EACH IV SCH (21:24)
[2018-06-11] MEDS: hydrALAZINE 25 MG TABLET PO PRN ×2 (04:40→12:25)
[2018-06-11 06:39] LABS: Calcium 7.3 MG/DL (8.5-10.1); Osmolality,Calculated 284.5 MOS/KG (273-304); Potassium 3.5 MMOL/L (3.5-5.1)
[2018-06-11] MEDS: cloNIDine 0.1 MG TABLET PO SCH (08:24)
[2018-06-11] MEDS: INSULIN REGULAR 100 UNIT/ML SUBCUT SCH ×4 (08:24→20:44)
[2018-06-11] MEDS: ACETAMINOPHEN 325 MG TABLET PO PRN (08:24)
[2018-06-11 10:09] LABS: % Iron Saturation 24.3 % (18-50)
[2018-06-11] MEDS: CARVEDILOL 25 MG TABLET PO SCH ×2 (12:23→16:42)
[2018-06-11] MEDS ORDERED: LABETALOL 20 MG/4 ML SYRINGE IV ONE (14:48)
[2018-06-11] MEDS ORDERED: POTASSIUM CHLORIDE 20 MEQ TABLET PO ONE (15:27)
[2018-06-11] MEDS ORDERED: LOPERAMIDE 2 MG CAPSULE PO PRN (15:29)
[2018-06-11] MEDS: ONDANSETRON 4 MG/2 ML VIAL IV PRN (16:15)
[2018-06-11] MEDS ORDERED: hydrALAZINE 20 MG/1 ML VIAL IV PRN (16:22)
[2018-06-11] MEDS: niCARdipine INJ 25 MG in SODIUM CHLORIDE 0.9% 240 ML IV PRN (19:15)
[2018-06-11] MEDS: cefTRIAXone 1,000 MG in SYRINGE 1 EACH IV SCH (20:43)
[2018-06-12] MEDS: niCARdipine INJ 25 MG in SODIUM CHLORIDE 0.9% 240 ML IV PRN (00:16)
[2018-06-12] MEDS: INSULIN REGULAR 100 UNIT/ML SUBCUT SCH ×4 (07:23→21:13)
[2018-06-12] MEDS: CARVEDILOL 25 MG TABLET PO SCH ×2 (08:26→17:46)
[2018-06-12] MEDS ORDERED: EPOETIN ALFA 10,000 UNIT/1 ML VIAL IV PRN (12:33)
[2018-06-13 07:25] VITALS: BP 155/94
[2018-06-13] MEDS: CARVEDILOL 25 MG TABLET PO SCH (08:59)
[2018-06-13] MEDS: INSULIN REGULAR 100 UNIT/ML SUBCUT SCH (08:59)
== END 2018-06-13 11:40 | disposition home or self-care (01) | DRG 637 ==
LOC: N.ED 20:00 → SUATTDRO 06-08 00:50 → N.EDINP 06-08 00:50 → N.CC 06-08 01:11 → N.5E 06-10 12:09 → N.CC 06-11 19:18 → N.5E 06-12 17:30
PROVIDERS: ADMIT Internal Medicine; ATTEND Internal Medicine